=== PATIENT | male | born 1965 | race Caucasian/White ===

== ENCOUNTER 2020-09-03 16:13 | Day surgery (SDCO) | payer MEDICARE ==
[~2020-09-03] VITALS: Ht 177.8 cm; Wt 112.2 kg
[~2020-09-03 16:13] MED LIST: CLEOCIN300 MG PO; CYMBALTA60 MG PO; DULOXETINE HCL20 MG PO; IBUPROFEN800 MG PO; LEVEMIR FL100 UNIT/1 SC; METFORMIN HCL500 M3 PO; MOBIC15 MG PO; OXYCODONE HCL10 MG PO; OXYCODONE HCL15 M1 PO; OXYCODONE HCL15 MG PO; SIMVASTATIN20 MG PO
[2020-09-03 17:45] LABS: BASOPHIL 0.7 % (0-2); EOSINOPHIL 1.5 % (0-5); HCT 39.1 % (42.0-52.0); HGB 13.6 g/dl (13.2-18.0); LYMPHOCYTE 13.6 % (15-48); MCH 30.8 pg (25.0-31.0); MCHC 34.8 g/dL (32.0-36.0); MCV 88.7 fL (78.0-100.0); MONOCYTE 7.3 % (0-12); MPV 9.8 fL (6.0-9.5); NEUTROPHIL 75.8 % (41-80); NRBC 0; PLT 280 K/uL (150-400); RBC 4.41 M/uL (4.70-6.00); RDW 12.4 % (11.5-14.0); WBC 11.9 K/uL (4.0-10.5)
[2020-09-03 17:55] LABS: INR 1.08 (0.9-1.2); PROTHROMBIN TIME 13.4 SECONDS (11.8-13.4)
[2020-09-03 17:56] LABS: PTT 29.9 SECONDS (24.4-34.7)
[2020-09-03 18:07] LABS: BILIRUBIN NEGATIVE (NEGATIVE); BLOOD NEGATIVE Ery/uL (NEGATIVE); CLARITY CLEAR (CLEAR); COLOR YELLOW (YELLOW); GLUCOSE (U) 3+ mg/dL (NORMAL); LEUKOCYTES NEGATIVE Leu/uL (NEGATIVE); NITRITE NEGATIVE (NEGATIVE); PROTEIN NEGATIVE (NEGATIVE)
[2020-09-03 18:08] LABS: LACTIC ACID 1.6 mmol/L (0.4-1.9)
[2020-09-03 18:25] LABS: ALBUMIN 3.3 g/dL (3.4-5.0); BILIRUBIN - TOTAL 0.7 mg/dL (0.2-1.0); BUN/CREAT RATIO (CALC) 19.7 RATIO; CREATININE 0.66 mg/dL (0.67-1.17); POTASSIUM 4.2 mmol/L (3.5-5.1); TOTAL PROTEIN 7.3 g/dL (6.4-8.2)
[2020-09-04 06:22] LABS: BASOPHIL 0.6 % (0-2); EOSINOPHIL 1.5 % (0-5); HCT 37.2 % (42.0-52.0); LYMPHOCYTE 15.4 % (15-48); MCH 30.7 pg (25.0-31.0); MCHC 34.9 g/dL (32.0-36.0); MCV 87.9 fL (78.0-100.0); MONOCYTE 9.1 % (0-12); NEUTROPHIL 72.5 % (41-80); NRBC 0; PLT 252 K/uL (150-400); RBC 4.23 M/uL (4.70-6.00); RDW 12.5 % (11.5-14.0); WBC 11.4 K/uL (4.0-10.5)
[2020-09-04 06:43] LABS: BUN/CREAT RATIO (CALC) 16.7 RATIO; CREATININE 0.6 mg/dL (0.67-1.17); POTASSIUM 3.9 mmol/L (3.5-5.1)
--- NOTE | 2020-09-04 10:30 | NUR ---
09/04/20 Please consider full admit or discharge. Thank You.
[2020-09-05 05:59] LABS: BASOPHIL 0.8 % (0-2); EOSINOPHIL 2.5 % (0-5); HCT 35.7 % (42.0-52.0); LYMPHOCYTE 18.8 % (15-48); MCH 30.5 pg (25.0-31.0); MCHC 33.6 g/dL (32.0-36.0); MCV 90.6 fL (78.0-100.0); MONOCYTE 9.3 % (0-12); MPV 9.8 fL (6.0-9.5); NEUTROPHIL 67.1 % (41-80); NRBC 0; PLT 245 K/uL (150-400); RBC 3.94 M/uL (4.70-6.00); RDW 12.6 % (11.5-14.0); WBC 7.8 K/uL (4.0-10.5)
[2020-09-05 06:12] LABS: BUN/CREAT RATIO (CALC) 16.9 RATIO; CREATININE 0.65 mg/dL (0.67-1.17); POTASSIUM 3.5 mmol/L (3.5-5.1)
[2020-09-05] MEDS ORDERED: DOXYCYCLINE MO100 MG PO (14:11)
[2020-09-20] MEDS ORDERED: ARTHRITIS PAIN100 GM TOP (13:40)
[2020-09-20] MEDS ORDERED: OXYCODONE HCL15 M1 PO (16:50)
[2020-11-21] MEDS ORDERED: OXYCODONE HCL15 M1 PO (09:49)
== END 2020-09-05 15:43 | disposition home or self-care (01) ==
LOC: FER 16:13 → FMS 20:08
PROVIDERS: Emergency Medicine; Nurse Practitioner; ADMIT Internal Medicine
DX: K61.1 Rectal abscess (principal); L03.317 Cellulitis of buttock; E11.9 Type 2 diabetes mellitus without complications; G89.4 Chronic pain syndrome; M54.5 Low back pain; G47.30 Sleep apnea, unspecified; I10 Essential (primary) hypertension; Z86.16 Personal history of COVID-19; Z79.4 Long term (current) use of insulin; Z79.891 Long term (current) use of opiate analgesic; Z20.822 Contact with and (suspected) exposure to COVID-19
CPT/HCPCS: 36415; 72193; 80048; 80053; 80202; 81003; 82962; 83036; 83605; 84145; 85025; 85610; 85730; 87040; 87070; 87205; G0378; J1170; J1650; J2405; J2543; J3370; J7030; J7040; J7050; Q9967; U0002